=== PATIENT | female | born 1990 | race African-American/Black ===

== ENCOUNTER 2016-12-10 14:55 | Emergency (ER) | payer SELFPAY ==
[2016-12-10 15:01] VITALS: BP 139/97; BMI 36.0
--- NOTE | 2016-12-10 15:54 | DR.GENAD ---
HPI - PCP Primary Care Physician: JAN - HPI Comment HPI Comment: HISTORY BELOW. - Complaint/Symptoms Chief Complaint Doctors Comments: PATIENT AT WORK, FELT DIZZY AND WAS GOING TO PASS OUT. HER THROAT FELT SWOLLEN AND HAD TO SIT DOWN AND REST. STILL HAVE DYSPHAGIA. NO FEVER. Chief Complaint:: PATIENT STATED SHE WAS AT WORK AND STARTED FELLING BAD IN HER THROAT THEN SHE GOT DIZZY AND NAUSEATED. - Nurses notes reviewed Nurses Notes Review: Yes - Source History Provided: Patient - Mode of Arrival Mode of Arrival: Ambulatory - Timing Onset of Chief Complaint: 12/10/16 Came on: Suddenly - Duration Duration: Constant Duration: Hours - Severity Severity: Moderate PMH - PMH Past Medical History: Yes Past Medical History: Migraines Past Surgical History: Yes Surgical History: Appendectomy - Family History History of Family Medical Conditions: Yes Family Medical History: Diabetes Mellitus - Social History Does patient currently use any type of tobacco product: Yes Have you used tobacco products in the last 12 months: Yes Type of Tobacco Use: Cigarettes How many years tobacco product used: 10 Does any household member use tobacco: No Alcohol Use: None Do you use any recreational Drugs:: No Lives With: Family Lives Where: Home - infectious screening In the last 2 months have you had wt loss of >10#?: NO Have you had fever, night sweats or hemotysis?: No Have you traveled outside the country in the last 6 months?: No Isolation: Standard ROS - Review of Systems Constitutional: Weakness, Fatigue Eyes: No Symptoms Reported. negative: Eye Pain, Discharge ENTM: Throat Pain, Throat Swelling. negative: Ear Pain, Nose Discharge, Nose Congestion Respiratoy: No Symptoms Reported Cardiovascular: No Symptoms Reported Gastrointestinal/Abdominal: No Symptoms Reported Genitourinary: No Symptoms Reported Neurological: Headache, Weakness, Dizziness Musculoskeletal: Muscle Pain Integumentary: No Symptoms Reported Hematologic/Lymphatic: No Symptoms Reported Endocrine: No Symptoms Reported All Other Systems: Reviewed and Negative PE - Vital Signs Vitals: Temperature 98.5 F Pulse Rate 72 Respiratory Rate 16 Blood Pressure 139/97 O2 Sat by Pulse Oximetry 100 - General Limitations: No Limitations General Appearance: Alert - Head Head Exam: Normal Inspection - Eyes Eye exam: Normal Appearance - ENT ENT Exam: Normal External Ear Exam External Ear Exam: Normal External Inspection TM/Canal Exam: Bilateral Normal Nose Exam: Normal Nose Exam Mouth Exam: Normal Inspection Throat Exam: Tonsillar Erythema. negative: Tonsillomegaly, Tonsillar Exudate, R Peritonsillar Mass, L Peritonsillar Mass, Muffled Voice - Neck Neck Exam: Normal Inspection - Chest Chest Inspection: Symmetric Chest Wall Rise - Respiratory Respiratory Exam: Normal Lung Sounds Bilat Respiratory Exam: Bilateral Clear to Auscultation - Cardiovascular Cardiovascular Exam: Regular Rate, Normal Rhythm, Normal Heart Sounds - Abdominal Exam Abdominal Exam: Normal Bowel Sounds, Soft. negative: Tenderness - Extremities Extremities Exam: Normal Inspection - Back Back Exam: Normal Inspection - Neurologic Neurological Exam: Alert, Oriented X3, Normal Gait, Reflexes Normal. negative: CN II-XII Intact, Motor Sensory Deficit - Psychiatric Psychiatric Exam: Normal Affect, Normal Mood - Skin Skin Exam: Normal Color MDM - Differential Diagnosis Differential Diagnosis: DIZZINESS, NEAR SYNCOPE, WEAKNESS, DYSPHAGIA, SORE THROAT. Course - Treatment Treatment: SEE ORDERS. - Education/Counseling Education/Counseling: Patient, Education Educated On: Diagnosis, Needs for Follow Up ROR - Labs Reviewed Laboratory Results Reviewed?: Yes Result Diagrams: 12/10/16 16:03 12/10/16 16:03 Laboratory: WBC 6.5 X10^3/uL (3.6-10.0) 12/10/16 16:03 RBC 4.33 X10^6/uL (3.5-5.4) 12/10/16 16:03 Hgb 12.6 g/dL (12.0-16.0) 12/10/16 16:03 Hct 38.0 % (36.0-47.0) 12/10/16 16:03 MCV 87.7 fL (80.0-100.0) 12/10/16 16:03 MCH 29.0 pg (27.0-34.0) 12/10/16 16:03 MCHC 33.1 g/dL (33.0-35.0) 12/10/16 16:03 RDW 13.9 % (11.6-16.5) 12/10/16 16:03 Plt Count 172 X10^3/uL (150.0-450.0) 12/10/16 16:03 MPV 10.7 fL (7.4-11.0) 12/10/16 16:03 Neut % 39.4 % (42.0-75.0) L 12/10/16 16:03 Lymph % 51.8 % (21.0-51.0) H 12/10/16 16:03 [place] % 7.2 % (0.0-13.0) 12/10/16 16:03 Eos % 0.6 % (0.9-2.9) L 12/10/16 16:03 Baso % 1.0 % (0.2-1.0) 12/10/16 16:03 Neut # 2.5 x10^3/uL (2.2-4.8) 12/10/16 16:03 Lymph # 3.3 X10^3/uL (1.3-2.9) H 12/10/16 16:03 [place] # 0.5 x10^3/uL (0.3-0.8) 12/10/16 16:03 Eos # 0.0 x10^3/uL (0.0-0.2) 12/10/16 16:03 Baso # 0.1 X10^3/uL (0.0-0.1) 12/10/16 16:03 Absolute Nucleated RBC 0.0 /100WBC 12/10/16 16:03 Sodium 141 mmol/L (136-145) 12/10/16 16:03 Corrected Sodium TNP 12/10/16 16:03 Potassium 3.7 mmol/L (3.5-5.1) 12/10/16 16:03 Chloride 106 mmol/L (98-107) 12/10/16 16:03 Carbon Dioxide 29.2 mmol/L (21-32) 12/10/16 16:03 BUN 10 mg/dL (7-18) 12/10/16 16:03 Creatinine 0.89 mg/dL (0.55-1.02) 12/10/16 16:03 Est GFR (MDRD) Af Amer > 60 (>60) 12/10/16 16:03 Est GFR (MDRD) Non-Af > 60 (>60) 12/10/16 16:03 Glucose 80 mg/dL (65-99) 12/10/16 16:03 Calcium 8.4 mg/dL (8.5-10.1) L 12/10/16 16:03 Corrected Calcium TNP 12/10/16 16:03 Total Bilirubin 0.30 mg/dL (0.2-1.0) 12/10/16 16:03 AST 20 Units/L (15-37) 12/10/16 16:03 ALT 22 Units/L (12-78) 12/10/16 16:03 Alkaline Phosphatase 45 Units/L (46-116) L 12/10/16 16:03 Total Protein 7.4 g/dL (6.4-8.2) 12/10/16 16:03 Albumin 3.4 g/dL (3.4-5.0) 12/10/16 16:03 Globulin 4.0 g/dL (2.5-4.5) 12/10/16 16:03 Albumin/Globulin Ratio 0.9 Ratio (1.1-2.1) L 12/10/16 16:03 HCG, Qual Negative <10 mIU/mL 12/10/16 16:03 Monoscreen Negative (NEGATIVE) 12/10/16 16:03 Streptococcus Screen Negative (NEGATIVE) 12/10/16 16:38 - XRAY XRAY Interpreted by: Radiologist XRAY Findings: REPORT DISCUSS WITH PATIENT. - Diagnosis Discharge Problem: Dizziness Dysphagia Qualifiers: Dysphagia type: oropharyngeal phase Qualified Code(s): R13.12 - Dysphagia, oropharyngeal phase - Discharge Plan Disposition: 01 HOME, SELF-CARE Condition: Stable - Follow ups/Referrals Follow ups/Referrals: [facility],None [Primary Care Provider] - 2 days Alex Meneses [STAFF PHYSICIAN] - 2 days - Instructions Instructions: Dizziness, [id number], Dysphagia, Near-Syncope, [id number] Additional Instructions: RETURN TO ED IF WORSE.
[2016-12-10 16:11] LABS: BASOPHILS # (AUTO) 0.1 X10^3/uL (0.0-0.1); EOSINOPHILS % (AUTO) 0.6 % (0.9-2.9); HEMOGLOBIN 12.6 g/dL (12.0-16.0); LYMPHOCYTES # (AUTO) 3.3 X10^3/uL (1.3-2.9); LYMPHOCYTES % (AUTO) 51.8 % (21.0-51.0); MEAN CORPUSCULAR HGB CONC 33.1 g/dL (33.0-35.0); MEAN CORPUSCULAR VOLUME 87.7 fL (80.0-100.0); MEAN PLATELET VOLUME 10.7 fL (7.4-11.0); MONOCYTES # (AUTO) 0.5 x10^3/uL (0.3-0.8); MONOCYTES % (AUTO) 7.2 % (0.0-13.0); NEUTROPHILS # (AUTO) 2.5 x10^3/uL (2.2-4.8); NEUTROPHILS % (AUTO) 39.4 % (42.0-75.0); PLATELET COUNT 172 X10^3/uL (150.0-450.0); RED BLOOD COUNT 4.33 X10^6/uL (3.5-5.4); RED CELL DISTRIBUTION WIDTH 13.9 % (11.6-16.5); WHITE BLOOD COUNT 6.5 X10^3/uL (3.6-10.0)
[2016-12-10 16:22] LABS: MONOTEST NEGATIVE (NEGATIVE); SERUM PREGNANCY TEST, QUAL NEGATIVE <10 mIU/mL
[2016-12-10 16:23] LABS: ALANINE AMINOTRANSFERASE 22 Units/L (12-78); ALBUMIN 3.4 g/dL (3.4-5.0); ALKALINE PHOSPHATASE 45 Units/L (46-116); ASPARTATE AMINO TRANSFERASE 20 Units/L (15-37); BLOOD UREA NITROGEN 10 mg/dL (7-18); CALCIUM 8.4 mg/dL (8.5-10.1); CARBON DIOXIDE 29.2 mmol/L (21-32); CHLORIDE 106 mmol/L (98-107); CREATININE 0.89 mg/dL (0.55-1.02); GLUCOSE 80 mg/dL (65-99); SODIUM 141 mmol/L (136-145); TOTAL PROTEIN 7.4 g/dL (6.4-8.2); eGFR BLACK RACES > 60 (>60); eGFR NON BLACK RACES > 60 (>60)
--- NOTE | 2016-12-10 17:35 | CT ---
HISTORY: Dizziness and nausea. Study: CT brain without contrast Comparison: None. Technique: Multiple axial images of the brain were obtained from the skull base to the vertex without administr ation of IV contrast. Findings: No acute intraparenchymal hemorrhage or mass can be identified. No extra-axial fluid collections ar e seen. No alteration in the attenuation of the brain parenchyma can be identified to suggest acute or subacute ischemic change. The ventricular system is symmetric and nondilated. The extracranial structures are grossly unremarkable. IMPRESSION: 1. No acute intracranial process can be identified. Reported By:
== END 2016-12-10 17:53 | disposition home or self-care (01) ==
LOC: ER 15:08
DX: R42 Dizziness and giddiness (principal); R13.12 Dysphagia, oropharyngeal phase
CPT/HCPCS: 36415; 70450; 80053; 84703; 85025; 86308; 87070; 87880; 99282; 99283